=== PATIENT | female | born 1975 | race Caucasian/White ===

== ENCOUNTER 2021-01-22 06:39 | Day surgery (SDC) | payer BC ==
[~2021-01-22 06:39] MED LIST: Lactated Ringers 1,000 ML IV SCH; Sodium Chloride 0.9% 10 ML SDV IV PRN; Sodium Chloride 0.9% 10 ML Syringe FLUSH PRN; Sodium Chloride 0.9% 2.5 ML Syringe FLUSH PRN; ceFAZolin 1 GM Vial IM ONE
--- NOTE | 2021-01-22 07:16 | PCM.PREANE ---
Preanesthetic Assessment - Procedure Proposed Procedure: Transobturator vaginal taping - Anesthesia/Transfusion/Family Hx Anesthesia History: Prior Anesthesia Without Reaction Family History of Anesthesia Reaction: No Transfusion History: No Prior Transfusion(s) - Review of Systems General: No Symptoms Pulmonary: No Symptoms Cardiovascular: No Symptoms Gastrointestinal: No Symptoms Neurological: No Symptoms Other: Reports: None - Physical Assessment NPO Status Date: 01/21/21 NPO Status Time: 20:00 Height: 5 ft 4 in Weight: 71.668 kg ASA Class: 2 Mental Status: Alert & Oriented x3 Airway Class: Mallampati = 2 Dentition: Reports: Normal Dentition Thyro-Mental Finger Breadths: 3 Mouth Opening Finger Breadths: 3 Lungs: Clear to Auscultation, Normal Respiratory Effort Cardiovascular: Regular Rate, Regular Rhythm - Allergies Allergies/Adverse Reactions: Allergies Allergy/AdvReac Type Severity Reaction Status Date / Time No Known Allergies Allergy Verified 01/18/21 07:29 - Acknowledgements Anesthesia Type Planned: General Anesthesia Pt an Appropriate Candidate for the Planned Anesthesia: Yes Alternatives and Risks of Anesthesia Discussed w Pt/Guardian: Yes Pt/Guardian Understands and Agrees with Anesthesia Plan: Yes PreAnesthesia Questionnaire - Past Health History Medical/Surgical History: Denies Medical/Surgical History HEENT History: Reports: None Cardiovascular History: Reports: None Respiratory History: Reports: None Gastrointestinal History: Reports: None Genitourinary History: Reports: None 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: Musculoskeletal History: Reports: None Neurological History: Reports: None Psychiatric History: Reports: None Endocrine/Metabolic History: Reports: Hypothyroidism Hematologic History: Reports: None Immunologic History: Reports: None Oncologic (Cancer) History: Reports: None Dermatologic History: Reports: None - Past Surgical History Head Surgeries/Procedures: Reports: None HEENT Surgical History: Reports: None Cardiovascular Surgical History: Reports: None Respiratory Surgical History: Reports: None GI Surgical History: Reports: None Female Surgical History: Reports: Cervical Cryotherapy Other Female Surgeries/Procedures: urinary urgency and leakage Endocrine Surgical History: Reports: None Neurological Surgical History: Reports: None Musculoskeletal Surgical History: Reports: None Oncologic Surgical History: Reports: None Dermatological Surgical History: Reports: None - SUBSTANCE USE Tobacco Use Status *Q: Never Tobacco User - HOME MEDS Home Medications: Home Meds Cannabidiol (Cbd) Extract [CBD Oil] 1 dose PO ASDIRECTED 01/18/21 [History] Levothyroxine 125 mcg PO DAILY 01/18/21 [History] - CURRENT (IN HOUSE) MEDS Current Meds: Current Medications Lactated Ringer's (Ringers, Lactated) 1,000 mls @ 100 mls/hr IV ASDIRECTED JOAN Sodium Chloride (Sodium Chloride 0.9% 10 Ml Syringe) 10 ml FLUSH ASDIRECTED PRN PRN Reason: Keep Vein Open Sodium Chloride (Sodium Chloride 0.9% 2.5 Ml Syringe) 2.5 ml FLUSH ASDIRECTED PRN PRN Reason: Keep Vein Open Sodium Chloride (Sodium Chloride 0.9% 10 Ml Sdv) 10 ml IV ASDIRECTED PRN PRN Reason: IV Use Discontinued Medications Cefazolin Sodium (Cefazolin 1 Gm Vial) 1 gm IM ONETIME ONE Stop: 01/22/21 05:01
[2021-01-22] MEDS ORDERED: Ketorolac 30 MG/ML SDV ONE (07:24)
[2021-01-22] MEDS ORDERED: Dexamethasone 4 MG/ML 5 ML MDV ONE (07:24)
[2021-01-22] MEDS ORDERED: Propofol 200 MG/20 ML SDV ONE ×2 (07:24→08:14)
[2021-01-22] MEDS ORDERED: Ondansetron 4 MG/2 ML SDV ONE (07:24)
[2021-01-22] MEDS ORDERED: fentaNYL 100 MCG/2 ML SDV ONE (07:24)
[2021-01-22] MEDS ORDERED: Lidocaine 2% 5 ML SDV ONE (07:24)
[2021-01-22] MEDS ORDERED: Midazolam 1 MG/ML 2 ML SDV ONE (07:24)
[2021-01-22] MEDS ORDERED: Octyl 2-Cyanoacrylate 1 Tube ONE (07:35)
[2021-01-22] MEDS ORDERED: Bupivacaine 0.25% 10 ML SDV ONE (07:35)
[2021-01-22] MEDS ORDERED: Neomycin/Polymyxin B Bladder Irrigation 1 ML Amp ONE (07:36)
--- NOTE | 2021-01-22 08:57 | PCM.POSTAN ---
POST ANESTHESIA ASSESSMENT - MENTAL STATUS Mental Status: Alert, Oriented - VITAL SIGNS Vital Signs: Last Vital Signs Temp 98.8 F 01/22/21 07:00 Pulse 75 01/22/21 07:00 Resp 15 01/22/21 07:00 BP 114/75 01/22/21 07:00 Pulse Ox 98 01/22/21 07:00 - RESPIRATORY Respiratory Status: Respiratory Rate WNL, Airway Patent, O2 Saturation Stable - CARDIOVASCULAR CV Status: Pulse Rate WNL, Blood Pressure Stable - GASTROINTESTINAL GI Status: No Symptoms - PAIN Pain Score: 0 - POST OP HYDRATION Hydration Status: Adequate & Stable
[2021-01-22] MEDS ORDERED: Ondansetron 4 MG/2 ML SDV IVPUSH PRN (08:58)
[2021-01-22] MEDS ORDERED: Naloxone 0.4 MG/ML SDV IVPUSH PRN (08:58)
[2021-01-22] MEDS ORDERED: Metoclopramide 10 MG/2 ML SDV IVPUSH PRN (08:58)
[2021-01-22] MEDS ORDERED: Albuterol 0.083% 2.5 MG/3 ML Neb Soln NEB PRN (08:58)
[2021-01-22] MEDS ORDERED: Acetaminophen 1,000 MG in Premix Bag 1 BAG IV PRN (08:58)
[2021-01-22] MEDS ORDERED: HYDROmorphone 1 MG/ML Syringe IVPUSH PRN (08:58)
[2021-01-22] MEDS ORDERED: fentaNYL 100 MCG/2 ML SDV IVPUSH PRN (08:58)
[2021-01-22] MEDS ORDERED: Morphine 2 MG/ML SYRINGE IVPUSH PRN (08:58)
--- NOTE | 2021-01-22 09:00 | PCM.OPNOTE ---
- General Post-Op/Procedure Note Date of Surgery/Procedure: 01/22/21 Operative Procedure(s): TOVT Findings: urethral hypermobility Pre Op Diagnosis: Stress urinary incontinence. Urethral hypermobility Post-Op Diagnosis: Same Anesthesia Technique: Local, MAC Primary Surgeon: Alicia Maravilla Fluid Replacement, Intraop: 650 EBL in mLs: 30 Complications: none known Condition: Good Free Text/Narrative:: Dictation [id number]
--- NOTE | 2021-01-22 09:04 | PCM48HPAN ---
Post Anesthesia Note - EVALUATION WITHIN 48HRS OF ANESTHETIC Vital Signs in Normal Range: Yes Patient Participated in Evaluation: Yes Respiratory Function Stable: Yes Airway Patent: Yes Cardiovascular Function Stable: Yes Hydration Status Stable: Yes Pain Control Satisfactory: Yes Nausea and Vomiting Control Satisfactory: Yes Mental Status Recovered: Yes Vital Signs: Last Vital Signs Temp 97.0 F 01/22/21 08:49 Pulse 80 01/22/21 09:02 Resp 15 01/22/21 09:02 BP 109/67 01/22/21 09:02 Pulse Ox 96 01/22/21 09:02 - COMMENTS/OBSERVATIONS Free Text/Narrative:: Pt doing well post-op. VSS. No apparent anesthetic complications. Dr. Bonifacio Villegas
--- NOTE | 2021-01-22 16:07 | OR ---
SURGEON: Alicia Maravilla M.D. DATE OF PROCEDURE: 01/22/2021 PREOPERATIVE DIAGNOSES: 1. Stress urinary incontinence. 2. Urethral hypermobility. POSTOPERATIVE DIAGNOSES: 1. Stress urinary incontinence. 2. Urethral hypermobility. PROCEDURE: Transobturator vaginal taping, Obtryx II system. PRIMARY SURGEON: Alicia Maravilla MD. ANESTHESIA: MAC with local. ESTIMATED BLOOD LOSS: 30 mL. FLUIDS: 650 mL crystalloid. COMPLICATIONS: None. FINDINGS: Urethral hypermobility. DISPOSITION: The patient to PACU, stable. PROCEDURE DETAILS: Quynh is a 45-year-old female who has ongoing difficulties with stress urinary incontinence. Cystometry indicates she would be a reasonable candidate for surgical intervention with mid urethral sling. Options have been discussed with her. She would like to proceed with surgery. Proper consent obtained. The patient was taken to the operating room where she underwent MAC anesthetic, was placed in modified dorsal lithotomy position, was prepped and draped in the usual sterile fashion. SCDs to the lower extremities. Bladder was drained. Received Ancef prophylactically. Time-out was performed. Along the adductor longus muscle, directly below this, the notching was palpated in the symphysis pubis and was marked with a marking pen on either side. This region was now infiltrated with 1% lidocaine and 0.25% bupivacaine diluted in saline. Please see nurse's notes for total amount dispensed during the procedure. This region along with the region directly behind the pubic bone were now infiltrated with local anesthetic. [place] was placed posteriorly along the vagina directly below the urethral meatus in the midline. This region was grasped with an Allis clamp and was also infiltrated with the local anesthetic as well as the periurethral spaces. Approximately 1.5 cm midline vaginal sagittal incision was made using a 15 blade scalpel and brain incisions were created over the region of the marking pen on either side with 11 blade scalpel. The periurethral space now on either side was dissected sharply and bluntly until the medial aspect of the bone was palpated. The left finger was introduced into the left vaginal incision until the medial aspect of the pubic bone was palpated and the Obtryx introducer was aligned with the left groin incision. The introducer was placed through the incision perforating the transobturator membrane and muscle rotating behind the pubic bone and exiting through the left side of the vaginal incision. The sulcus was inspected and found to be intact. The tape was attached and removed through the port of entry. In similar fashion, this was performed on the patient's right side. Once again, sulcus was inspected and found to be intact. The tape on either side was now irrigated with Neosporin saline solution. The tape stabilizer was clipped and trimmed in the midline. The overlying sheaths were removed. The tape was tented downward in the midline while gently tightening. The bladder was now backfilled with 240 mL of saline. The catheter was removed, and with Valsalva, was able to gently tighten the tape until the leakage was no longer evident. Once the tape was felt to be satisfactorily tightened, the edges were trimmed at the groin. The area over the urethra was closely inspected. No region of service unit operator was noted, and the Aguilar catheter easily passed through the urethra. The vaginal mucosa was now reapproximated using 3-0 Vicryl in continuous running locked fashion. The edges at the groin incisions were now reapproximated using Dermabond. Sponge, instrument, and needle counts correct x2. The patient has tolerated the procedure well overall. The Aguilar catheter was replaced, and she will go to PACU in stable condition to undergo a voiding trial once she is more awake prior to being discharged home. SALEEM POPE /[id number]
== END 2021-01-22 10:45 | disposition home or self-care (01) ==
LOC: MW.SDS 06:39
PROVIDERS: ATTEND Obstetrics & Gynecology
DX: N39.3 Stress incontinence (female) (male) (principal); N36.41 Hypermobility of urethra; E03.9 Hypothyroidism, unspecified; Z79.890 Hormone replacement therapy; Z79.899 Other long term (current) drug therapy; Z98.890 Other specified postprocedural states
CPT/HCPCS: 57288; A9270; C1771; J0131; J0690; J1100; J1885; J2250; J2704; J3490; J7120; 00860; J2405; J3010

== ENCOUNTER 2021-04-04 02:31 | Emergency (ER) | payer BC ==
[2021-04-04] MEDS ORDERED: ALPRAZolam 0.5 MG Tab PO ONE (03:08)
--- NOTE | 2021-04-04 04:10 | EDM.PDOC ---
ED HPI GENERAL MEDICAL PROBLEM - General Chief Complaint: Genitourinary Problem Stated Complaint: UNABLE TO URINATE Time Seen by Provider: 04/04/21 02:34 - History of Present Illness INITIAL COMMENTS - FREE TEXT/NARRATIVE: CHIEF COMPLAINT(S): "I cannot pee." HISTORY OF PRESENT ILLNESS: This is a 45-year-old woman with a prior history of bladder sling secondary to urinary incontinence who comes to the emergency department with a chief complaint of "I cannot pee." The patient states that approximately 3 hours prior to arrival she was unable to urinate. She states that she has the urge to urinate however when she goes to pee she cannot pee a full amount. She states that she does not have any pain in between trying to urinate however when she pees she feels 8-9 out of 10 crampy pain in her bladder. She states that she has never had this before. She denies any fevers or chills. She denies any radiation of the pain. She states that the only thing that relieves it is not trying to pee however trying to pee exacerbates it. She denies any other symptoms.. REVIEW OF SYSTEMS: Constitutional: Denies fever, chills. Eyes: Denies eye pain Ears, Nose, Mouth, & Throat: Denies earache Cardiovascular: Denies chest pain Respiratory: Denies shortness of breath Gastrointestinal: Denies Nausea, vomiting, diarrhea, hematochezia. Genitourinary: Positive for increased urgency and decreased urination. Denies hematuria, dysuria Skin:Denies a rash MSK: Denies joint pain Neurological: Denies blurred vision Psychiatric: Denies depression PAST MEDICAL HISTORY: As per history of present illness and as reviewed below otherwise noncontributory. SURGICAL HISTORY: As per history of present illness and as reviewed below otherwise noncontributory. SOCIAL HISTORY: As per history of present illness and as reviewed below otherwis e noncontributory. FAMILY HISTORY: As per history of present illness and as reviewed below otherwise noncontributory. EXAMINATION OF ORGAN SYSTEMS/BODY AREAS: Constitutional: Blood pressure was 139/86, heart rate 100, respiratory rate 17 with an oxygen saturation 98% on room air. Temperature 35.8 General: Young woman who is walking around the room holding her bladder and appears to be in a moderate amount of pain Psychiatric: Appropriate mood and affect. Eyes: No scleral icterus or conjunctival erythema ENMT: Moist mucous membranes. No pharyngeal erythema Cardiovascular: Regular, rate, and rhythm. No gallops, murmurs, or rubs. Respiratory: Lungs clear to auscultation bilaterally. No wheezes, rales, or rhonchi. Gastrointestinal: Soft, non-tender, non-distended. Normoactive bowel sounds Genitourinary: There is suprapubic tenderness and the bladder can be palpated through the abdominal wall. No CVA tenderness Musculoskeletal: Normal range of motion. Skin: No lesions or abrasions. Neurological: Alert, GCS 15 MEDICAL DECISION MAKING AND COURSE IN THE ED WITH INTERPRETATION/REVIEW OF DIAGNOSTIC STUDIES: This is a 45-year-old woman with a past medical history of bladder sling placement for urinary incontinence in December 2020 who comes to the emergency department with acute onset what appears to be urinary retention who has normal vital signs. At this time we did perform a bedside bladder scan which did reveal greater than 1 L of urine. This was a post void residual. Given this I did discuss placement of a Aguilar catheter. The patient was anxious about this therefore I discussed with her I would contact her specialty team that works with Dr. Maravilla for further recommendations. At this time I will provide the patient with 0.5 mg of Xanax for anxiolysis. Will obtain urinalysis and BMP. I contacted Dr. Maldonado, Dr. Maravilla's partner who recommended placement of a Aguilar catheter and that she would contact the nurse in the morning to schedule an appointment with Dr. Maravilla this week. She recommend that the patient continue with the Aguilar catheter at this time. Laboratory: BMP is unremarkable. Urinalysis revealed trace leukocyte esterase indicating no acute urinary tract infection. We did place a Aguilar catheter into the patient. Postvoid residual was 0. The patient reported symptomatic improvement. At this time I did discuss that she should continue with the Aguilar catheter and follow-up with her surgeon this week. I encouraged her to return for any new or worsening symptoms. She was amenable to discharge at this time and had no further questions DISPOSITION: The patient was discharged home in stable condition. The patient will follow up with her surgeon this week CONDITION: Fair PROCEDURES: None FINAL IMPRESSION(S)/DIAGNOSES: 1. Acute urinary retention Espinoza C. Joelle, M.D. Abdomen Pain Score (Numeric/FACES): 6 - Related Data Allergies Allergy/AdvReac Type Severity Reaction Status Date / Time No Known Allergies Allergy Verified 04/04/21 02:35 Home Meds: Home Meds Cannabidiol (Cbd) Extract [CBD Oil] 1 dose PO ASDIRECTED 01/18/21 [History] Levothyroxine 125 mcg PO DAILY 01/18/21 [History] Tolterodine [Detrol] 4 mg PO DAILY 04/04/21 [History] Past Medical History - Past Health History Medical/Surgical History: Denies Medical/Surgical History HEENT History: Reports: None Cardiovascular History: Reports: None Respiratory History: Reports: None Gastrointestinal History: Reports: None Genitourinary History: Reports: None Other Genitourinary History: bladder sling placed Jan 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: Musculoskeletal History: Reports: None Neurological History: Reports: None Psychiatric History: Reports: None Endocrine/Metabolic History: Reports: Hypothyroidism Hematologic History: Reports: None Immunologic History: Reports: None Oncologic (Cancer) History: Reports: None Dermatologic History: Reports: None - Past Surgical History Head Surgeries/Procedures: Reports: None HEENT Surgical History: Reports: None Cardiovascular Surgical History: Reports: None Respiratory Surgical History: Reports: None GI Surgical History: Reports: None Female Surgical History: Reports: Cervical Cryotherapy Other Female Surgeries/Procedures: urinary urgency and leakage Endocrine Surgical History: Reports: None Neurological Surgical History: Reports: None Musculoskeletal Surgical History: Reports: None Oncologic Surgical History: Reports: None Dermatological Surgical History: Reports: None Social & Family History - Family History Family Medical History: No Pertinent Family History - Tobacco Use Tobacco Use Status *Q: Never Tobacco User - Recreational Drug Use Recreational Drug Use: No ED ROS GENERAL - Review of Systems Review Of Systems: See Below ED EXAM, GENERAL - Physical Exam Exam: See Below Course - Vital Signs Last Recorded V/S: Last Vital Signs Temp 36.8 C 04/04/21 05:04 Pulse 99 04/04/21 05:04 Resp 17 04/04/21 05:04 BP 116/73 04/04/21 05:04 Pulse Ox 96 04/04/21 05:04 - Orders/Labs/Meds Labs: Laboratory Tests 04/04/21 04/04/21 04/04/21 Range/Units 02:44 02:44 03:54 Sodium 140 (136-145) mmol/L Potassium 3.8 (3.5-5.1) mmol/L Chloride 103 (98-107) mmol/L Carbon Dioxide 23.9 (21.0-32.0) mmol/L BUN 13 (7.0-18.0) mg/dL Creatinine 0.8 (0.6-1.0) mg/dL Est Cr Clr Drug Dosing 75.88 mL/min Estimated GFR (MDRD) > 60.0 ml/min Glucose 111 H (74-106) mg/dL Calcium 8.5 (8.5-10.1) mg/dL Urine Color YELLOW Urine Appearance HAZY Urine pH 6.0 (5.0-8.0) Ur Specific [place] <= 1.005 (1.001-1.035) Urine Protein NEGATIVE (NEGATIVE) mg/dL Urine Glucose (UA) NEGATIVE (NEGATIVE) mg/dL Urine Ketones NEGATIVE (NEGATIVE) mg/dL Urine Occult Blood NEGATIVE (NEGATIVE) Urine Nitrite NEGATIVE (NEGATIVE) Urine Bilirubin NEGATIVE (NEGATIVE) Urine Urobilinogen 0.2 (<2.0) EU/dL Ur Leukocyte Esterase TRACE H (NEGATIVE) Urine RBC 0-1 (0-2/HPF) Urine WBC 0-3 (0-5/HPF) Ur Epithelial Cells RARE (NONE-FEW) Urine Bacteria FEW (NEGATIVE) Urine HCG, Qual NEGATIVE (NEGATIVE) Meds: Medications Discontinued Medications Generic Name Dose Route Start Last Admin Trade Name Freq PRN Reason Stop Dose Admin Alprazolam 0.5 mg 04/04/21 03:08 04/04/21 03:18 Alprazolam 0.5 Mg Tab PO 04/04/21 03:09 0.5 mg NOW ONE Administration Departure - Departure Time of Disposition: 04:09 Disposition: Home, Self-Care 01 Condition: Fair Clinical Impression: Urinary retention - Discharge Information *PRESCRIPTION DRUG MONITORING PROGRAM REVIEWED*: No *COPY OF PRESCRIPTION DRUG MONITORING REPORT IN PATIENT GLENNY: No Instructions: Indwelling Urinary Catheter Care, Adult, Acute Urinary Retention, Female, [id number] Referrals: PCP,None [Primary Care Provider] - Forms: ED Department Discharge Additional Instructions: You were evaluated today on an emergent basis. At this time you did have a significant amount of urine that was retained in your bladder. We did place a Aguilar catheter at recommendation of your specialty team. This needs to stay in place until you follow-up with Dr. Maravilla this week. If you have any worsening pain please return to the emergency department. If you do not receive a call by Monday I would contact the number below to discuss follow-up appointment. [facility] [address] [place] [id number] The patient is informed of any results of their evaluation and diagnostic workup and all questions are answered. They are given discharge instructions and return precautions. The patient is stable for discharge. The patient states they understand and agree with the plan and that they will return if their symptoms get worse or if they have any new concerns. The following information is given to patients seen in the emergency department who are being discharged to home. This information is to outline your options for follow-up care. We provide all patients seen in our emergency department with a follow-up referral. The need for follow-up, as well as the timing and circumstances, are variable depending upon the specifics of your emergency department visit. If you don't have a primary care physician on staff, we will provide you with a referral. We always advise you to contact your personal physician following an emergency department visit to inform them of the circumstance of the visit and for follow-up with them and/or the need for any referrals to a consulting specialist. The emergency department will also refer you to a specialist when appropriate. This referral assures that you have the opportunity for follow-up care with a specialist. All of these measure are taken in an effort to provide you with optimal care, which includes your follow-up. Under all circumstances we always encourage you to contact your private physician who remains a resource for coordinating your care. When calling for follow-up care, please make the office aware that this follow-up is from your recent emergency room visit. If for any reason you are refused follow-up, please contact the [facility] Emergency Department at and asked to speak to the emergency department charge nurse. Sepsis Event Note (ED) - Evaluation Sepsis Screening Result: No Definite Risk
[2021-04-04 04:32] LABS: BLOOD UREA NITROGEN,BUN 13 mg/dL (7.0-18.0); CARBON DIOXIDE,CO2 23.9 mmol/L (21.0-32.0); CHLORIDE,CL 103 mmol/L (98-107); GLUCOSE RANDOM 111 mg/dL (74-106); POTASSIUM,K 3.8 mmol/L (3.5-5.1); SODIUM,NA 140 mmol/L (136-145)
== END 2021-04-04 05:04 | disposition home or self-care (01) ==
LOC: MW.ED 02:31
DX: R33.9 Retention of urine, unspecified (principal); Z79.899 Other long term (current) drug therapy
CPT/HCPCS: 36415; 51702; 51798; 80048; 81001; 81025; 87086; 99283; A9270

== ENCOUNTER 2023-11-13 08:49 | Day surgery (SDC) | payer BC ==
[2023-11-12 10:50] LABS: HEMATOCRIT 37.5 % (37.0-47.0); HEMOGLOBIN 12.5 g/dL (12.0-16.0); MEAN CORPUSCULAR HEMOGLOBIN 31.6 pg (28.0-32.0); MEAN CORPUSCULAR HGB CONC 33.3 g/dL (32.0-36.0); MEAN CORPUSCULAR VOLUME 94.9 fL (83.0-99.0); MEAN PLATELET VOLUME 10.4 fL (9.4-12.3); PLATELET COUNT,PLT 200 K/uL (150-400); RED BLOOD CELL COUNT 3.95 M/uL (4.10-5.30); WHITE BLOOD CELL COUNT,WBC 3.98 K/uL (3.9-11.3)
[2023-11-12 11:30] LABS: T4 FREE 0.63 ng/dL (0.76-1.46); TSH ULTRASENSITIVE 4.43 uIU/mL (0.36-3.74)
[~2023-11-13 08:49] MED LIST changes: +Albuterol 0.083% 2.5 MG/3 ML Neb Soln NEB PRN; +HYDROmorphone 1 MG/ML Syringe IVPUSH PRN; -Lactated Ringers 1,000 ML IV SCH; +Metoclopramide 10 MG/2 ML SDV IVPUSH PRN; +Morphine 2 MG/ML SYRINGE IVPUSH PRN; +Naloxone 0.4 MG/ML SDV IVPUSH PRN; +Ondansetron 4 MG/2 ML SDV IVPUSH PRN; -Sodium Chloride 0.9% 10 ML SDV IV PRN; -Sodium Chloride 0.9% 10 ML Syringe FLUSH PRN; -Sodium Chloride 0.9% 2.5 ML Syringe FLUSH PRN; -ceFAZolin 1 GM Vial IM ONE; +droPERidol 5 MG/2 ML SDV IVPUSH PRN
[2023-11-13] MEDS ORDERED: Dexamethasone 4 MG/ML 5 ML MDV ONE (09:09)
[2023-11-13] MEDS ORDERED: Lidocaine 1% 5 ML VIAL ONE (09:09)
[2023-11-13] MEDS ORDERED: Ondansetron 4 MG/2 ML SDV ONE (09:09)
[2023-11-13] MEDS ORDERED: propofoL 50 ML ONE (09:10)
[2023-11-13] MEDS ORDERED: fentaNYL 100 MCG/2 ML SDV ONE (09:10)
[2023-11-13] MEDS ORDERED: Ketorolac 30 MG/ML SDV ONE (09:15)
[2023-11-13] MEDS ORDERED: Midazolam 1 MG/ML 2 ML SDV ONE (09:17)
[2023-11-13] MEDS: Lactated Ringers 1,000 ML IV SCH (09:18)
[2023-11-13] MEDS: Scopalamine 1mg/3day Transdermal Patch TOP ONE (09:18)
[2023-11-13] MEDS: fentaNYL 50 MCG/ML SDV IVPUSH PRN (10:49)
[2023-11-14] MEDS ORDERED: Sodium Chloride 0.9% 10 ML Syringe FLUSH PRN (05:00)
[2023-11-14] MEDS ORDERED: Sodium Chloride 0.9% 20 ML SDV IV PRN (05:00)
[2023-11-14] MEDS ORDERED: Sodium Chloride 0.9% 2.5 ML Syringe FLUSH PRN (05:00)
== END 2023-11-13 12:20 | disposition home or self-care (01) ==
LOC: MW.SDS 08:49
PROVIDERS: ATTEND Obstetrics & Gynecology
DX: N84.0 Polyp of corpus uteri (principal); E03.9 Hypothyroidism, unspecified; Z79.899 Other long term (current) drug therapy; Z79.890 Hormone replacement therapy
CPT/HCPCS: 36415; 58563; 84439; 84443; 84703; 85027; A9270; C1729; J0131; J1100; J1885; J2250; J2405; J2704; J3010; J7120; 00952; J3490